=== PATIENT | female | born 1995 | race Caucasian/White ===

== ENCOUNTER 2018-09-04 05:54 | Inpatient (IN) | payer MEDICAID, OTHER ==
[2018-09-04 06:19] LABS: ADD MAN DIFF? NO
[2018-09-04] MEDS: LACTATED RINGER'S 1,000 ML IV ×3 (06:21→22:03)
[2018-09-04 06:25] LABS: BASOPHIL # 0.1 10^3/ul (0.0-0.1); BASOPHILS % 0.5 % (0.0-2.0); EOSINOPHILS # 0.2 10^3/ul (0.0-0.5); EOSINOPHILS % 2.2 % (0.0-7.0); HEMATOCRIT 39.8 % (37.0-47.0); HEMOGLOBIN 13.6 g/dl (12.0-16.0); LYMPHOCYTES # 3.3 10^3/ul (0.8-2.9); LYMPHOCYTES % 31.5 % (15.0-51.0); MEAN CORPUSCULAR HEMOGLOBIN 30.6 pg (29.0-33.0); MEAN CORPUSCULAR HGB CONC 34.2 g/dl (32.0-37.0); MEAN CORPUSCULAR VOLUME 89.6 fl (82.0-101.0); MEAN PLATELET VOLUME 9.3 fl (7.4-10.4); MONOCYTE # 0.8 10^3/ul (0.3-0.9); MONOCYTES % 7.2 % (0.0-11.0); NEUTROPHILS % 57.4 % (39.0-77.0); PLATELET COUNT 244 10^3/UL (140-415); RED BLOOD COUNT 4.44 10^6/ul (4.20-5.40); RED CELL DISTRIBUTION WIDTH 13.2 % (11.5-14.5)
[2018-09-04 06:25] LABS: WHITE BLOOD COUNT 10.4 10^3/ul (4.8-10.8)
[2018-09-04] MEDS ORDERED: METHYLERGONOVINE 0.2 MG INJ IM ×2 (06:30→14:00)
[2018-09-04] MEDS ORDERED: MISOPROSTOL 200 MCG TAB PR ×2 (06:30→14:00)
[2018-09-04] MEDS ORDERED: OXYTOCIN 30 UNITS/LR 500 ML IV ×3 (06:30→14:00)
[2018-09-04] MEDS ORDERED: CARBOPROST 250 MCG INJ IM ×2 (06:30→14:00)
[2018-09-04 06:44] LABS: INR 0.84; PROTIME 11.6 Sec (11.9-14.9); PT RATIO 0.9
[2018-09-04 06:45] LABS: PARTIAL THROMBOPLASTIN TIME 26.4 Sec (23.0-35.0)
[2018-09-04] MEDS ORDERED: morphine SULFATE/PF (10 MG/10 ML) INJ (08:52)
[2018-09-04] MEDS ORDERED: ONDANSETRON 4 MG INJ (08:52)
[2018-09-04] MEDS ORDERED: EPHEDrine SULFATE 50 MG/5 ML SYG (08:52)
[2018-09-04] MEDS ORDERED: METOCLOPRAMIDE 10 MG INJ (08:52)
[2018-09-04] MEDS ORDERED: OXYTOCIN 10 UNIT INJ ×2 (08:52→09:39)
[2018-09-04] MEDS ORDERED: MIDAZOLAM 1 MG/ML 2 ML INJ (09:39)
[2018-09-04] MEDS: CEFAZOLIN 2 GM/50 ML (PMX) 50 ML IVPB (10:02)
[2018-09-04] MEDS ORDERED: EPHEDrine SULFATE 50 MG/5 ML SYG IV (11:00)
[2018-09-04] MEDS ORDERED: ONDANSETRON 4 MG INJ IV (11:00)
[2018-09-04] MEDS: morphine SULFATE/PF (10 MG/10 ML) INJ SPINAL (11:00)
[2018-09-04] MEDS ORDERED: KETOROLAC 30 MG INJ IV (11:00)
[2018-09-04] MEDS ORDERED: morphine 2 MG INJ IV (11:00)
[2018-09-04] MEDS ORDERED: DIPHENHYDRAMINE 50 MG INJ IV (11:00)
[2018-09-04] MEDS: OXYTOCIN 30 UNITS/LR 500 ML IV ×2 (12:43→17:33)
[2018-09-04] MEDS ORDERED: DEXTROSE 5%-LR 1,000 ML IV (13:51)
[2018-09-04] MEDS: HYDROCODONE/APAP (5/325) TAB PO ×2 (14:00→22:00)
[2018-09-04] MEDS: IBUPROFEN 800 MG TAB PO ×2 (14:00→22:00)
[2018-09-04] MEDS ORDERED: MAGNESIUM HYDROXIDE 30ML CUP PO (14:00)
[2018-09-04] MEDS ORDERED: IBUPROFEN 800 MG TAB PO (14:00)
[2018-09-04] MEDS ORDERED: METHYLERGONOVINE 0.2 MG TAB PO (14:00)
[2018-09-04] MEDS: morphine 2 MG INJ IV ×2 (14:34→18:50)
[2018-09-04 15:42] LABS: RAPID PLASMA REAGIN NONREACTIVE (NR)
[2018-09-04] MEDS: SENNA/DOCUSATE NA (8.6MG/50MG) TAB PO (21:59)
[2018-09-05] MEDS: morphine 2 MG INJ IV (00:07)
[2018-09-05] MEDS: LACTATED RINGER'S 1,000 ML IV ×2 (03:02→08:00)
[2018-09-05] MEDS: IBUPROFEN 800 MG TAB PO ×3 (06:00→21:37)
[2018-09-05] MEDS: HYDROCODONE/APAP (5/325) TAB PO ×4 (06:00→21:40)
[2018-09-05 07:52] LABS: ADD MAN DIFF? NO
[2018-09-05 07:58] LABS: BASOPHIL # 0.1 10^3/ul (0.0-0.1); BASOPHILS % 0.4 % (0.0-2.0); EOSINOPHILS % 0.3 % (0.0-7.0); HEMATOCRIT 38.3 % (37.0-47.0); HEMOGLOBIN 13.1 g/dl (12.0-16.0); LYMPHOCYTES # 1.7 10^3/ul (0.8-2.9); LYMPHOCYTES % 13.7 % (15.0-51.0); MEAN CORPUSCULAR HEMOGLOBIN 30.2 pg (29.0-33.0); MEAN CORPUSCULAR HGB CONC 34.2 g/dl (32.0-37.0); MEAN CORPUSCULAR VOLUME 88.2 fl (82.0-101.0); MEAN PLATELET VOLUME 8.7 fl (7.4-10.4); MONOCYTE # 0.6 10^3/ul (0.3-0.9); MONOCYTES % 4.5 % (0.0-11.0); NEUTROPHIL # 9.8 10^3/ul (1.6-7.5); NEUTROPHILS % 80.4 % (39.0-77.0); PLATELET COUNT 225 10^3/UL (140-415); RED BLOOD COUNT 4.34 10^6/ul (4.20-5.40); RED CELL DISTRIBUTION WIDTH 13.3 % (11.5-14.5)
[2018-09-05 07:58] LABS: WHITE BLOOD COUNT 12.2 10^3/ul (4.8-10.8)
[2018-09-05] MEDS: SENNA/DOCUSATE NA (8.6MG/50MG) TAB PO ×2 (09:07→21:37)
[2018-09-05] MEDS: INFLUENZA VIRUS VACCINE 0.5 ML (DISPENSING) IM* (09:08)
[2018-09-05 11:36] LABS: RUBELLA ANTIBODY - IGG 2.21 index
[2018-09-05 12:05] LABS: RHOGAM PROFILE 1 1
[2018-09-05] MEDS: LANOLIN 7 GM TUBE TOP (18:04)
[2018-09-06] MEDS: HYDROCODONE/APAP (5/325) TAB PO ×4 (05:57→21:50)
[2018-09-06] MEDS: IBUPROFEN 800 MG TAB PO ×3 (05:57→21:50)
[2018-09-06] MEDS: SENNA/DOCUSATE NA (8.6MG/50MG) TAB PO ×2 (08:58→20:59)
[2018-09-06 11:36] LABS: RUBELLA ANTIBODY - IGM <20.00 AU/mL
[2018-09-07] MEDS: IBUPROFEN 800 MG TAB PO ×2 (05:44→14:20)
[2018-09-07] MEDS: HYDROCODONE/APAP (5/325) TAB PO ×2 (05:44→14:20)
[2018-09-07] MEDS: MEASLES,MUMPS,RUBELLA VACCINE INJ SC* (09:00)
[2018-09-07] MEDS: DIPHTH/TET/ACEL PERTUSS (ADULT) 0.5 ML VIAL IM* (09:00)
[2018-09-07] MEDS: SENNA/DOCUSATE NA (8.6MG/50MG) TAB PO (09:20)
== END 2018-09-07 15:55 | disposition home or self-care (01) | DRG 788 ==
LOC: OBT 05:54 → L-D 05:57 → PP1 16:10
PROVIDERS: Obstetrics & Gynecology
PROC: 10D00Z1 Extraction of Products of Conception, Low, Open Approach (ICD-10-PCS; principal; 2018-09-04)
PROC: 3E033VJ Introduction of Other Hormone into Peripheral Vein, Percutaneous Approach (ICD-10-PCS; 2018-09-04)
DX: O34.211 Maternal care for low transverse scar from previous cesarean delivery (principal); Z3A.39 39 weeks gestation of pregnancy; Z37.0 Single live birth
CPT/HCPCS: 85025; 85610; 85730; 86592; 86762; 86850; 86870; 86885; 86900; 86901; 90686; 90715; 99464

== ENCOUNTER 2018-09-13 19:10 | Emergency (ER) | payer OTHER, MEDICAID ==
[2018-09-13] MEDS: ACETAMINOPHEN 325 MG TAB PO (22:35)
== END 2018-09-13 22:52 | disposition home or self-care (01) ==
LOC: FTE 19:10
DX: N61.0 Mastitis without abscess (principal)
CPT/HCPCS: 99283; Z7502